=== PATIENT | female | born 1970 | race Caucasian/White ===

== ENCOUNTER 2019-01-24 07:10 | Day surgery (SDC) | payer OTHER ==
[2019-01-24] MEDS ORDERED: FENTAnyl 50 MCG/ML VIAL (10:38)
[2019-01-24] MEDS ORDERED: MIDAZOLAM 1 MG/ML 2 ML INJ ×3 (10:38)
== END 2019-01-24 11:07 | disposition home or self-care (01) ==
LOC: GIL 07:10
DX: K29.30 Chronic superficial gastritis without bleeding (principal); D12.5 Benign neoplasm of sigmoid colon; K64.8 Other hemorrhoids
CPT/HCPCS: 43239; 88305; 88312